=== PATIENT | male | born 1965 | race Caucasian/White ===

== ENCOUNTER 2020-06-04 21:21 | Emergency (ER) | payer MEDICARE, OTHER ==
[~2020-06-04 21:21] MED LIST: ACETAMINOPHEN500 MG PO; CYCL10 PO; IBUP600 PO; MELO7.5 PO; Naproxen250 MG PO; OLANZAPINE10 M2 PO
== END 2020-06-04 23:41 | disposition left against medical advice (07) ==
LOC: ER 21:21
DX: Z53.21 Procedure and treatment not carried out due to patient leaving prior to being seen by health care provider (principal)

== ENCOUNTER 2023-01-21 12:01 | Emergency (ER) | payer MEDICARE, OTHER ==
[~2023-01-21] VITALS: Ht 185.4 cm; Wt 68.0 kg
[2023-01-21] MEDS ORDERED: LIDO700A20 TOP (12:53)
[2023-01-21] MEDS ORDERED: BUPR100 PO (12:53)
[2023-01-21] MEDS ORDERED: MELO7.5 PO (12:53)
[2023-01-21] MEDS ORDERED: CLON.5 PO (12:53)
[2023-01-21] MEDS ORDERED: FLUO10 PO (12:53)
[2023-01-21] MEDS ORDERED: GABA300 PO (12:53)
[2023-01-21] MEDS ORDERED: Robaxin750 MG PO (12:53)
[2023-01-22] MEDS ORDERED: OXYC5 PO (22:46)
[2023-01-22] MEDS ORDERED: METH40 PO (22:48)
== END 2023-01-21 13:26 | disposition home or self-care (01) ==
LOC: ER 12:01
DX: Z76.0 Encounter for issue of repeat prescription (principal); G89.29 Other chronic pain; M54.9 Dorsalgia, unspecified; J44.9 Chronic obstructive pulmonary disease, unspecified; F17.200 Nicotine dependence, unspecified, uncomplicated; Z79.899 Other long term (current) drug therapy
CPT/HCPCS: 99281

== ENCOUNTER 2023-01-22 22:13 | Emergency (ER) | payer MEDICARE, OTHER ==
[~2023-01-22] VITALS: Ht 185.4 cm; Wt 65.8 kg
[~2023-01-22 22:13] MED LIST changes: +BUPR100 PO; +CLON.5 PO; +FLUO10 PO; +GABA300 PO; +LIDO700A20 TOP; +Robaxin750 MG PO
[2023-01-22] MEDS ORDERED: OXYC5 PO (22:46)
[2023-01-22] MEDS ORDERED: METH40 PO (22:48)
[2023-01-23] MEDS ORDERED: Robaxin750 MG PO (00:06)
== END 2023-01-23 01:58 | disposition home or self-care (01) ==
LOC: ER 22:13
DX: M54.2 Cervicalgia (principal); J44.9 Chronic obstructive pulmonary disease, unspecified; F17.210 Nicotine dependence, cigarettes, uncomplicated; Z79.899 Other long term (current) drug therapy
CPT/HCPCS: 96374; 99283; A9270; J1885; J7030

== ENCOUNTER 2023-01-30 11:25 | Emergency (ER) | payer MEDICARE, OTHER ==
[~2023-01-30] VITALS: Ht 185.4 cm; Wt 63.5 kg
[~2023-01-30 11:25] MED LIST changes: +METH40 PO; +OXYC5 PO
[2023-01-30 11:27] VITALS: BP 151/100
[2023-01-31] MEDS ORDERED: NAPR500 PO (22:00)
== END 2023-01-30 12:39 | disposition home or self-care (01) ==
LOC: ER 11:25
DX: M25.511 Pain in right shoulder (principal); J44.9 Chronic obstructive pulmonary disease, unspecified; F17.210 Nicotine dependence, cigarettes, uncomplicated; W19.XXXA Unspecified fall, initial encounter; Z79.899 Other long term (current) drug therapy
CPT/HCPCS: 73030; 99283-25

== ENCOUNTER 2023-01-31 18:57 | Emergency (ER) | payer MEDICARE, OTHER ==
[~2023-01-31] VITALS: Ht 185.4 cm; Wt 63.5 kg
[2023-01-31 21:30] VITALS: BP 111/60
[2023-01-31] MEDS ORDERED: NAPR500 PO (22:00)
== END 2023-01-31 22:15 | disposition home or self-care (01) ==
LOC: ER 18:57
DX: S09.90XA Unspecified injury of head, initial encounter (principal); S16.1XXA Strain of muscle, fascia and tendon at neck level, initial encounter; S80.02XA Contusion of left knee, initial encounter; S80.212A Abrasion, left knee, initial encounter; S80.211A Abrasion, right knee, initial encounter; J44.9 Chronic obstructive pulmonary disease, unspecified; F17.210 Nicotine dependence, cigarettes, uncomplicated; Y04.2XXA Assault by strike against or bumped into by another person, initial encounter; Z79.899 Other long term (current) drug therapy
CPT/HCPCS: 70450; 72125; 73562-LT; 99284-25; A9270

== ENCOUNTER 2023-09-02 09:15 | Emergency (ER) | payer OTHER ==
[~2023-09-02] VITALS: Ht 175.3 cm; Wt 48.1 kg
[~2023-09-02 09:15] MED LIST changes: +NAPR500 PO
[2023-09-02 10:35] LABS: U Amphetamine Screen Not Detected; U Barbituate Screen Not Detected; U Benzodiazapine Screen Not Detected; U Buprenorphine Screen Not Detected; U Cannabinoids Screen DETECTED; U Cocaine Screen Not Detected; U Methadone Screen DETECTED; U Methamphetamine Screen Not Detected; U Opiates Screen Not Detected; U Oxycodone Screen Not Detected; U Phencyclidine Screen Not Detected; U Propoxyphene Screen Not Detected
[2023-09-02] MEDS ORDERED: GABAPENTIN600 MG PO (11:15)
[2023-09-02 14:14] VITALS: BP 121/82
[2023-09-02] MEDS ORDERED: BUPROPION XL150 M1 PO (19:35)
[2023-09-02] MEDS ORDERED: HYDHCL25 PO (19:36)
[2023-09-02] MEDS ORDERED: PERP8 PO (19:37)
[2023-09-02] MEDS ORDERED: FLUO10 PO (19:38)
[2023-09-02] MEDS ORDERED: CEPH500 PO (20:13)
== END 2023-09-02 14:14 | disposition home or self-care (01) ==
LOC: ER 09:15
PROVIDERS: Physician Assistant
DX: R41.82 Altered mental status, unspecified (principal); F17.200 Nicotine dependence, unspecified, uncomplicated; Z79.899 Other long term (current) drug therapy
CPT/HCPCS: 99285

== ENCOUNTER 2023-09-02 18:58 | Emergency (ER) | payer OTHER ==
[~2023-09-02] VITALS: Ht 185.4 cm; Wt 63.5 kg
[~2023-09-02 18:58] MED LIST changes: +GABAPENTIN600 MG PO
[2023-09-02 19:22] LABS: Source, Urine Clean Catch
[2023-09-02 19:24] LABS: Appearance, Urine Cloudy (Clear); Bilirubin, Urine Neg (Neg); Blood, Urine 1+ (Neg); Color, Urine Yellow (P-Yellow); Glucose Qualitative, Urine Neg (Neg); Ketones, Urine Neg (Neg); Leukocyte Esterase, Urine 3+ (Neg); Nitrite, Urine Pos (Neg); Protein, Urine 2+ (Neg); Urobilinogen, Urine NORM (Normal)
[2023-09-02 19:35] LABS: Bacteria Many /hpf; Squamous Epithelial Cells Rare /hpf (Few); White Blood Cells, Urine 50-100 /hpf (0-5)
[2023-09-02] MEDS ORDERED: BUPROPION XL150 M1 PO (19:35)
[2023-09-02] MEDS ORDERED: HYDHCL25 PO (19:36)
[2023-09-02] MEDS ORDERED: PERP8 PO (19:37)
[2023-09-02] MEDS ORDERED: FLUO10 PO (19:38)
[2023-09-02 19:41] LABS: BASOPHILS ABSOLUTE AUTO 0.09 K/mm3 (0.00-0.23); BASOPHILS PERCENT AUTO 1 % (0-2); EOSINOPHILS ABSOLUTE AUTO 0.26 K/mm3 (0.00-0.68); EOSINOPHILS PERCENT AUTO 3 % (0-6); Hematocrit 28.6 % (37.0-53.0); Hemoglobin 9.6 g/dL (13.5-17.5); IMMATURE GRAN ABSOLUTE AUTO 0.05 K/mm3 (0.00-0.10); IMMATURE GRAN PERCENT AUTO 1 % (0-1); LYMPHOCYTES ABSOLUTE AUTO 2.34 K/mm3 (0.84-5.20); LYMPHOCYTES PERCENT AUTO 27 % (21-46); MONOCYTES PERCENT AUTO 10 % (4-13); Mean Corpuscular HGB 29.5 pg (26.0-34.0); Mean Corpuscular HGB Conc 33.6 g/dL (31.5-36.5); Mean Corpuscular Volume 88 fL (80-100); NEUTROPHILS ABSOLUTE AUTO 5.06 K/mm3 (1.96-9.15); NEUTROPHILS PERCENT AUTO 58 % (41-73); NRBC ABSOLUTE 0.02 K/mm3 (0.00-0.02); NRBC Auto 0.2 /100 WBC (0.0-0.2); RDW Coefficient Variation 14.9 % (11.7-14.2); RDW Standard Deviation 47.8 fL (35.1-46.3); Red Blood Cell Count 3.25 M/mm3 (4.30-5.90)
[2023-09-02 19:57] LABS: Albumin, Blood 3.4 g/dL (3.4-5.0); Albumin/Globulin Ratio 1.3 (0.8-1.8); Bilirubin, Total 0.4 mg/dL (0.1-1.0); Bun/Creatinine Ratio 24.7 (12.0-20.0); Calcium, Blood 8.5 mg/dL (8.5-10.1); Creatinine, Blood 0.77 mg/dL (0.60-1.20); Globulin, Blood 2.7 g/dL (2.2-4.0); Mean Platelet Volume 10.8 fL (9.1-12.4); Platelet Count 241 K/mm3 (150-400); Potassium, Blood 4.7 mmol/L (3.5-5.5); Total Protein, Blood 6.1 g/dL (6.4-8.2)
[2023-09-02] MEDS ORDERED: CEPH500 PO (20:13)
[2023-09-02 20:39] VITALS: BP 102/66
== END 2023-09-02 20:39 | disposition home or self-care (01) ==
LOC: ER 18:58
PROVIDERS: Student in an Organized Health Care Education/Training Program
DX: N39.0 Urinary tract infection, site not specified (principal); M54.2 Cervicalgia; G89.29 Other chronic pain; F17.200 Nicotine dependence, unspecified, uncomplicated; Z79.899 Other long term (current) drug therapy
CPT/HCPCS: 80053; 81001; 85025; 87077; 87086; 87186; 93005; 93010; 99285-25; A9270; J1885

== ENCOUNTER 2023-09-03 06:33 | Emergency (ER) | payer OTHER ==
[~2023-09-03] VITALS: Ht 185.4 cm; Wt 63.5 kg
[~2023-09-03 06:33] MED LIST changes: +BUPROPION XL150 M1 PO; +CEPH500 PO; +HYDHCL25 PO; +PERP8 PO
[2023-09-03 07:25] LABS: Calcium, Ionized (POC) 1.17 mmol/L (1.10-1.46); Chloride (POC) 103 mmol/L (98-108); Creatinine (POC) 0.9 mg/dL (0.8-1.3); Glucose (ISTAT POC) 77 mg/dL (70-99); Hemoglobin (POC) 10.9 g/dL (13.5-17.5); Potassium (POC) 3.8 mmol/L (3.5-5.5); Sodium (POC) 142 mmol/L (135-148); Total CO2 (POC) 30 mmol/L (21-32)
[2023-09-03 07:45] VITALS: BP 107/60
== END 2023-09-03 07:55 | disposition home or self-care (01) ==
LOC: ER 06:33
PROVIDERS: Student in an Organized Health Care Education/Training Program
DX: G47.00 Insomnia, unspecified (principal); D64.9 Anemia, unspecified; Z79.899 Other long term (current) drug therapy; J44.9 Chronic obstructive pulmonary disease, unspecified; F17.210 Nicotine dependence, cigarettes, uncomplicated; R40.0 Somnolence
CPT/HCPCS: 80047; 80048; 81001; 82803; 85014; 85025; 87086; 96374; 96376; 99283; 99284-25; A9270; J2310

== ENCOUNTER 2023-09-03 12:04 | Emergency (ER) | payer OTHER ==
[~2023-09-03] VITALS: Ht 182.9 cm; Wt 63.5 kg
[2023-09-03 12:39] LABS: Base Excess Venous 4.4 mmol/L; Bicarbonate Venous 27.3 mmol/L (24.0-30.0); PCO2 Venous 56.6 mmHg (38-42); pH Blood Venous 7.34 (7.34-7.37)
[2023-09-03 12:42] LABS: BASOPHILS ABSOLUTE AUTO 0.09 K/mm3 (0.00-0.23); BASOPHILS PERCENT AUTO 1 % (0-2); EOSINOPHILS ABSOLUTE AUTO 0.35 K/mm3 (0.00-0.68); EOSINOPHILS PERCENT AUTO 5 % (0-6); Hematocrit 31.7 % (37.0-53.0); Hemoglobin 10.4 g/dL (13.5-17.5); IMMATURE GRAN ABSOLUTE AUTO 0.02 K/mm3 (0.00-0.10); IMMATURE GRAN PERCENT AUTO 0 % (0-1); LYMPHOCYTES ABSOLUTE AUTO 2.64 K/mm3 (0.84-5.20); LYMPHOCYTES PERCENT AUTO 35 % (21-46); MONOCYTES ABSOLUTE AUTO 0.78 K/mm3 (0.16-1.47); MONOCYTES PERCENT AUTO 10 % (4-13); Mean Corpuscular HGB 29.5 pg (26.0-34.0); Mean Corpuscular HGB Conc 32.8 g/dL (31.5-36.5); Mean Corpuscular Volume 90 fL (80-100); Mean Platelet Volume 10.6 fL (9.1-12.4); NEUTROPHILS ABSOLUTE AUTO 3.66 K/mm3 (1.96-9.15); NEUTROPHILS PERCENT AUTO 49 % (41-73); Platelet Count 263 K/mm3 (150-400); RDW Standard Deviation 49.9 fL (35.1-46.3); Red Blood Cell Count 3.53 M/mm3 (4.30-5.90); White Blood Cell Count 7.54 K/mm3 (4.00-11.30)
[2023-09-03 13:48] LABS: Bun/Creatinine Ratio 24.1 (12.0-20.0); Calcium, Blood 9.1 mg/dL (8.5-10.1); Creatinine, Blood 0.87 mg/dL (0.60-1.20); Potassium, Blood 3.8 mmol/L (3.5-5.5)
[2023-09-03 14:13] LABS: Source, Urine Clean Catch
[2023-09-03 14:18] LABS: Appearance, Urine Clear (Clear); Bilirubin, Urine Neg (Neg); Blood, Urine Neg (Neg); Color, Urine Yellow (P-Yellow); Glucose Qualitative, Urine Neg (Neg); Ketones, Urine Neg (Neg); Leukocyte Esterase, Urine 1+ (Neg); Nitrite, Urine Neg (Neg); Protein, Urine Neg (Neg); Specific Gravity, Urine 1.015 (1.003-1.022); Urobilinogen, Urine NORM (Normal); pH, Urine 6.5 (5.0-8.0)
[2023-09-03 14:33] LABS: Bacteria Mod /hpf; Red Blood Cells, Urine 0-2 /hpf (0-2); Squamous Epithelial Cells Rare /hpf (Few)
[2023-09-03 14:38] LABS: U Amphetamine Screen Not Detected; U Barbituate Screen Not Detected; U Benzodiazapine Screen DETECTED; U Cannabinoids Screen DETECTED; U Cocaine Screen Not Detected; U Methadone Screen DETECTED; U Methamphetamine Screen Not Detected
[2023-09-03 14:39] LABS: U Buprenorphine Screen Not Detected; U Opiates Screen Not Detected; U Oxycodone Screen Not Detected; U Phencyclidine Screen Not Detected
[2023-09-03 15:54] VITALS: BP 143/83
== END 2023-09-03 15:45 | disposition home or self-care (01) ==
LOC: ER 12:04
PROVIDERS: Student in an Organized Health Care Education/Training Program
DX: R40.0 Somnolence (principal); Z79.899 Other long term (current) drug therapy; J44.9 Chronic obstructive pulmonary disease, unspecified; F17.210 Nicotine dependence, cigarettes, uncomplicated
CPT/HCPCS: 80048; 81001; 82803; 85025; 87086; 96374; 96376; 99284-25; J2310

== ENCOUNTER 2023-10-08 11:41 | Emergency (ER) | payer OTHER ==
[~2023-10-08] VITALS: Ht 180.3 cm; Wt 65.8 kg
[2023-10-08 19:15] VITALS: BP 142/84
== END 2023-10-08 21:03 | disposition home or self-care (01) ==
LOC: ER 11:41
DX: F11.10 Opioid abuse, uncomplicated (principal); J44.9 Chronic obstructive pulmonary disease, unspecified; Z79.891 Long term (current) use of opiate analgesic; Z79.899 Other long term (current) drug therapy; F17.210 Nicotine dependence, cigarettes, uncomplicated
CPT/HCPCS: 93005; 93010; 99285-25

== ENCOUNTER 2023-12-11 20:03 | Emergency (ER) | payer OTHER ==
[~2023-12-11] VITALS: Ht 185.4 cm; Wt 65.8 kg
[2023-12-11 20:38] LABS: Albumin, Blood 3.9 g/dL (3.4-5.0); Albumin/Globulin Ratio 1.4 (0.8-1.8); Bilirubin, Total 0.3 mg/dL (0.1-1.0); Bun/Creatinine Ratio 18.7 (12.0-20.0); Calcium, Blood 9.5 mg/dL (8.5-10.1); Creatinine, Blood 0.91 mg/dL (0.60-1.20); Globulin, Blood 2.8 g/dL (2.2-4.0); Potassium, Blood 3.9 mmol/L (3.5-5.5); Total Protein, Blood 6.7 g/dL (6.4-8.2)
[2023-12-11 20:54] LABS: BASOPHILS ABSOLUTE AUTO 0.08 K/mm3 (0.00-0.23); BASOPHILS PERCENT AUTO 1 % (0-2); EOSINOPHILS ABSOLUTE AUTO 0.34 K/mm3 (0.00-0.68); EOSINOPHILS PERCENT AUTO 3 % (0-6); Hematocrit 33.8 % (37.0-53.0); Hemoglobin 11.4 g/dL (13.5-17.5); IMMATURE GRAN ABSOLUTE AUTO 0.04 K/mm3 (0.00-0.10); IMMATURE GRAN PERCENT AUTO 0 % (0-1); LYMPHOCYTES ABSOLUTE AUTO 2.05 K/mm3 (0.84-5.20); LYMPHOCYTES PERCENT AUTO 21 % (21-46); MONOCYTES ABSOLUTE AUTO 1.11 K/mm3 (0.16-1.47); MONOCYTES PERCENT AUTO 11 % (4-13); Mean Corpuscular HGB 28.9 pg (26.0-34.0); Mean Corpuscular HGB Conc 33.7 g/dL (31.5-36.5); Mean Corpuscular Volume 86 fL (80-100); Mean Platelet Volume 10.3 fL (9.1-12.4); NEUTROPHILS ABSOLUTE AUTO 6.35 K/mm3 (1.96-9.15); NEUTROPHILS PERCENT AUTO 64 % (41-73); Platelet Count 217 K/mm3 (150-400); RDW Coefficient Variation 12.9 % (11.7-14.2); RDW Standard Deviation 40.6 fL (35.1-46.3); Red Blood Cell Count 3.95 M/mm3 (4.30-5.90); White Blood Cell Count 9.97 K/mm3 (4.00-11.30)
[2023-12-11 22:00] VITALS: BP 105/61
== END 2023-12-11 22:56 | disposition home or self-care (01) ==
LOC: ER 20:03
PROVIDERS: Emergency Medicine
DX: S06.9X9A Unspecified intracranial injury with loss of consciousness of unspecified duration, initial encounter (principal); S00.01XA Abrasion of scalp, initial encounter; F11.10 Opioid abuse, uncomplicated; W18.30XA Fall on same level, unspecified, initial encounter; Z79.899 Other long term (current) drug therapy; J44.9 Chronic obstructive pulmonary disease, unspecified; F17.210 Nicotine dependence, cigarettes, uncomplicated
CPT/HCPCS: 70450; 80053; 85025; 99284-25

== ENCOUNTER 2025-06-01 17:32 | Observation (INO) | payer OTHER ==
[~2025-06-01] VITALS: Ht 177.8 cm; Wt 71.4 kg
[2025-06-01 18:11] LABS: BASOPHILS ABSOLUTE AUTO 0.03 K/mm3 (0.00-0.23); BASOPHILS PERCENT AUTO 0 % (0-2); EOSINOPHILS ABSOLUTE AUTO 0.00 K/mm3 (0.00-0.68); EOSINOPHILS PERCENT AUTO 0 % (0-6); Hematocrit 34.1 % (37.0-53.0); Hemoglobin 11.8 g/dL (13.5-17.5); IMMATURE GRAN ABSOLUTE AUTO 0.02 K/mm3 (0.00-0.10); IMMATURE GRAN PERCENT AUTO 0 % (0-1); LYMPHOCYTES ABSOLUTE AUTO 1.67 K/mm3 (0.84-5.20); LYMPHOCYTES PERCENT AUTO 19 % (21-46); MONOCYTES ABSOLUTE AUTO 0.63 K/mm3 (0.16-1.47); MONOCYTES PERCENT AUTO 7 % (4-13); Mean Corpuscular HGB Conc 34.6 g/dL (31.5-36.5); Mean Corpuscular Volume 78 fL (80-100); NEUTROPHILS ABSOLUTE AUTO 6.55 K/mm3 (1.96-9.15); NEUTROPHILS PERCENT AUTO 74 % (41-73); NRBC ABSOLUTE 0.00 K/mm3 (0.00-0.02); NRBC Auto 0.0 /100 WBC (0.0-0.2); Platelet Count 249 K/mm3 (150-400); RDW Coefficient Variation 14.6 % (11.7-14.2); RDW Standard Deviation 40.7 fL (35.1-46.3)
[2025-06-01] MEDS ORDERED: NS 1,000 ML IV SCH (18:25)
[2025-06-01 18:28] LABS: Acetaminophen, Random <2.0 ug/mL (10.0-30.0); Salicylate 5.6 mg/dL (2.8-20.0)
[2025-06-01 18:30] LABS: Prothrombin Time Results 12.9 Sec (9.7-11.5)
[2025-06-01 18:47] LABS: Alanine Aminotransfer (ALT/SGP 16 U/L (12-78); Albumin, Blood 3.5 g/dL (3.4-5.0); Albumin/Globulin Ratio 1.0 (0.8-1.8); Anion Gap 11 mmol/L (3-11); Aspartate Aminotrans (AST/SGOT 17 U/L (12-37); Bilirubin, Total 0.5 mg/dL (0.1-1.0); Blood Urea Nitrogen 15 mg/dL (8-24); CO2, Blood 20 mmol/L (21-32); Calcium, Blood 9.5 mg/dL (8.5-10.1); Chloride, Blood 108 mmol/L (98-108); Creatinine, Blood 0.72 mg/dL (0.60-1.20); Ethanol (Alcohol), Blood, Med <3 mg/dL; Globulin, Blood 3.4 g/dL (2.2-4.0); Glucose, Blood 131 mg/dL (70-99); Potassium, Blood 3.6 mmol/L (3.5-5.5); Sodium, Blood 135 mmol/L (136-145); Total Protein, Blood 6.9 g/dL (6.4-8.2)
[2025-06-01 18:58] LABS: pH Blood Venous 7.50 (7.34-7.37)
[2025-06-01 20:37] LABS: pH Blood Venous 7.44 (7.34-7.37)
[2025-06-02 07:19] LABS: Anion Gap 8.0 mmol/L (3-11); Blood Urea Nitrogen 13.0 mg/dL (8-24); CO2, Blood 21.0 mmol/L (21-32); Calcium, Blood 7.8 mg/dL (8.5-10.1); Chloride, Blood 113.0 mmol/L (98-108); Creatinine, Blood 0.68 mg/dL (0.60-1.20); Glucose, Blood 101.0 mg/dL (70-99); Potassium, Blood 3.5 mmol/L (3.5-5.5); Sodium, Blood 138.0 mmol/L (136-145)
[2025-06-02] MEDS ORDERED: Enoxaparin 40 MG/0.4 ML SYR SC SCH (09:00)
[2025-06-02 12:26] LABS: IMMATURE RETIC FRACTION 7.1 % (2.3-16.0); RETIC HGB EQUIVALENT 31.5 pg (28.20-36.60); RETICULOCYTE ABSOLUTE 0.0749 M/mm3 (0.0200-0.1100); RETICULOCYTE COUNT PERCENT 1.71 % (0.50-2.50)
[2025-06-02 13:25] LABS: Ferritin, Serum 93.0 ng/mL (26-388); Magnesium, Blood 1.8 mg/dL (1.6-2.4); Thyroid Stimulating Hormone 0.4 uIU/mL (0.360-4.800); Total Iron Binding Capacity 184.0 ug/dL (250-450)
[2025-06-02 13:26] LABS: Phosphorus, Blood 2.8 mg/dL (2.5-4.9)
[2025-06-02 14:44] VITALS: BP 161/84
--- NOTE | 2025-06-02 15:21 | NUR ---
ADMISSION NOTE: PATIENT ARRIVES TO ROOM VIA GURNEY AT 1430 FROM ER FOR DX'S OF TOXIC METABOLIC ENCEPHALOPATHY. PATIENT TRANSFERRED TO BED c 3 MAX ASSIST USING A SLIDER SHEET. PATIENT ALERT AND ORIENTED TO HIS NAME ONLY, CONFUSED AND NOT ABLE TO FOLLOW DIRECTIONS. PATIENT ADMISSION, SKIN ASSESSMENT c 2 RN'S VERIFIED COMPLETED. PATIENT MEDRIC IS NOT COMPLETED D/T AMS AND NOT ABLE TO CONTRIBUTE ANY MEDICATION LIST WELL MEDICAL HX. THIS RN ATTEMPTED TO CALL PATIENT SPOUSE AT [phone] [phone], BUT GOES TO [facility]ICE MAIL AND NOT ABLE TO LEFT A MESSAGE D/T MAIL BOX IS FULL. PATIENT REPORTS BEING "COLD". PATIENT PROVIDED c WARM BLANKET. BED ALARM ON FOR SAFETY. CALL LIGHT IN REACH.
[2025-06-02] MEDS ORDERED: GABA300 PO (16:29)
[2025-06-02] MEDS ORDERED: PRAZ2 PO (16:36)
[2025-06-02] MEDS ORDERED: METPHE20CR PO (16:36)
--- NOTE | 2025-06-02 17:35 | NUR ---
SHIFT SUMMARY: PATIENT HAS HAD NO CHANGES SINCE ADMITTED TO UNIT. PATIENT A/O TO SELF ONLY, PLEASANTLY CONFUSED, REPLIED c SMILE WHEN ASKED TO QUESTION. PATIENT CONTINENT OF BLADDER, AMBULATED TO BATHROOM/BACK IN BED c 1 ASSIST. PATIENT TOLERATED ORAL INTAKE WELL WITHOUT ANY DIFFICULTIES SWALLOWING. VITAL SIGNS REVIEWED. BED ALARM ON FOR SAFETY. CALL LIGHT IN REACH.
--- NOTE | 2025-06-02 18:10 | NUR ---
UPDATE NOTE: RECEIVED A CALL FROM SPOUSE (BRANDIN) AT [phone] ASKING FOR PATIENT UPDATE. UPDATE GIVEN TO SPOUSE (BRANDIN). PER BRANDIN PATIENT "NORMALLY ALERT AND ORIENTED, HE MANAGE ALL HIS MEDICATION AT HOME, HES CONFUSION STARTED ABOUT TWO DAYS AGO AFTER EPISODE OF THREWING UP." THIS RN ASKED BRANDIN PATIENT HOME METHADONE DOSE. PER BRANDIN "HE TAKES 170 MG DAILY AND I CANNOT REMEMBER THE LAST TIME HE TOOK IT BECAUSE HE MANAGE ALL HIS MEDICATION."
[2025-06-02 19:44] VITALS: BP 148/88
--- NOTE | 2025-06-03 04:25 | NUR ---
NIGHT SUMMARY: PT AOX1. MUMBLED SPEECH. UNABLE TO FOLLOW DIRECTIONS. UNSURE IF MED REC WAS COMPLETED. PT UNABLE TO PROVIDE ANY HISTORY. TALKED WITH CHARGE AND WILL PASS ALONG TO DAY SHIFT. PT ABLE TO TURN SELF IN BED. SET BED ALARM OFF ONCE OVERNIGHT WHILE GETTING UP TO BATHROOM TO VOID. PT SBA. NO EPISODES OF INCONTINENCE. ON RA. CALL LIGHT WITHIN REACH AND BED IN LOW POSITION. PT KEEPS TAKING OFF GRIPPER SOCKS.
[2025-06-03 04:42] VITALS: BP 136/74
[2025-06-03 04:57] LABS: BASOPHILS ABSOLUTE AUTO 0.05 K/mm3 (0.00-0.23); BASOPHILS PERCENT AUTO 1 % (0-2); EOSINOPHILS ABSOLUTE AUTO 0.05 K/mm3 (0.00-0.68); EOSINOPHILS PERCENT AUTO 1 % (0-6); Hematocrit 34.2 % (37.0-53.0); Hemoglobin 11.6 g/dL (13.5-17.5); IMMATURE GRAN ABSOLUTE AUTO 0.03 K/mm3 (0.00-0.10); IMMATURE GRAN PERCENT AUTO 0 % (0-1); LYMPHOCYTES ABSOLUTE AUTO 2.49 K/mm3 (0.84-5.20); LYMPHOCYTES PERCENT AUTO 27 % (21-46); MONOCYTES ABSOLUTE AUTO 1.01 K/mm3 (0.16-1.47); MONOCYTES PERCENT AUTO 11 % (4-13); Mean Corpuscular HGB Conc 33.9 g/dL (31.5-36.5); Mean Corpuscular Volume 79 fL (80-100); NEUTROPHILS ABSOLUTE AUTO 5.78 K/mm3 (1.96-9.15); NEUTROPHILS PERCENT AUTO 62 % (41-73); NRBC ABSOLUTE 0.00 K/mm3 (0.00-0.02); NRBC Auto 0.0 /100 WBC (0.0-0.2); Platelet Count 226 K/mm3 (150-400); RDW Coefficient Variation 14.3 % (11.7-14.2); RDW Standard Deviation 41.2 fL (35.1-46.3)
[2025-06-03 05:13] LABS: Anion Gap 8.0 mmol/L (3-11); Blood Urea Nitrogen 12.0 mg/dL (8-24); CO2, Blood 23.0 mmol/L (21-32); Calcium, Blood 8.7 mg/dL (8.5-10.1); Chloride, Blood 108.0 mmol/L (98-108); Creatinine, Blood 0.7 mg/dL (0.60-1.20); Glucose, Blood 101.0 mg/dL (70-99); Potassium, Blood 3.3 mmol/L (3.5-5.5); Sodium, Blood 136.0 mmol/L (136-145)
[2025-06-03 07:14] VITALS: BP 146/93
--- NOTE | 2025-06-03 07:35 | NUR ---
MEDREC NOTE: VISUAL BASIC PROGRAMMER JULIO CÉSAR WAS ABLE TO OBTAIN THE LIST OF PATIENT MEDS FROM [facility] VIA FAXED 06/02 AND THIS RN SPOKE TO SPOUSE (BRANDIN) YESTERDAY 06/02/25 REGARDING METHADONE DOSE. PATIENT HOME MEDS HAS BEEN RECONCILLED.
[2025-06-03] MEDS ORDERED: Potassium Chl 20MEQ/Water100ML 100 ML IV STA (07:58)
[2025-06-03] MEDS ORDERED: Sod Ferric Gluc Complx/Sucrose 125 MG in NS 100 ML IV SCH (09:00)
--- NOTE | 2025-06-03 09:30 | NUR ---
NOTIFICATION NOTE: PATIENT PULLED HIS IV ACCESS, MULTIPLE ATTEMPTS MADE FOR PIV PLACEMENT, BUT UNSUCCESSFUL. PATIENT HAS SCHEDULED IV MEDS THIS AM. NOTIFIED DR. PATRICIA martinez THIS ISSUE. PER DR. GOMEZ HE WILL CHANGE TO ORAL AND WILL ROUND PATIENT SOON.
[2025-06-03 13:07] LABS: Source, Urine Clean Catch
[2025-06-03 13:23] LABS: Bilirubin, Urine Neg (Neg); Glucose Qualitative, Urine Neg (Neg); Ketones, Urine Neg (Neg); Leukocyte Esterase, Urine Neg (Neg); Protein, Urine Neg (Neg); Specific Gravity, Urine 1.005 (1.003-1.022); Urobilinogen, Urine NORM (Normal)
[2025-06-03 13:36] LABS: Color, Urine Pale Yellow (P-Yellow)
[2025-06-03 13:39] LABS: U Amphetamine Screen Not Detected
[2025-06-03 13:40] LABS: U Barbituate Screen Not Detected; U Benzodiazapine Screen Not Detected; U Buprenorphine Screen Not Detected; U Cannabinoids Screen DETECTED; U Cocaine Screen Not Detected; U Methadone Screen DETECTED; U Methamphetamine Screen Not Detected; U Opiates Screen Not Detected; U Oxycodone Screen Not Detected; U Phencyclidine Screen Not Detected
--- NOTE | 2025-06-03 17:21 | NUR ---
SHIFT/DISCHARGE SUMMARY: PATIENT A/O TO SELF AND PLACED, CONFUSED, BUT ABLE TO FOLLOW DIRECTIONS. PATIENT DENIES CP/PRESSURE, SOB, N/V, DIZZINESS AND GENERALIZED PAIN. PATIENT RECEIVED LIQUID PO POTASSIUM PRIOR TO DISCHARGE. PATIENT HAS FAIR APPETITE, CONTINENT OF BLADDER AND AMBULATES TO BATHROOM c SBA. PATIENT DISCHARGE HOME. DISCHARGE INSTRUCTIONS PACKET GIVEN TO PATIENT. PATIENT EDUCATED ON ADMITITNG DX'S OF TOXIC METABOLIC ENCEPHALOPATHY, S/S, TX AND TO F/U c PCP. PATIENT VERBALIZED UNDERSTANDING AND NO FURTHER QUESTIONS. PATIENT HAS HAD NO NEW RX ORDER. PATIENT LEFT THE ROOM AT 1623, TRANSPORTED VIA WC BY MOVIE PROJECTIONIST TO PATIENT ENTRANCE.
== END 2025-06-03 16:23 | disposition home or self-care (01) ==
LOC: ER 17:32 → ERHOLD 17:33 → MEDS 17:33 → ERHOLD 17:33 → ER 20:14 → MEDS 20:14
PROVIDERS: Family Medicine; Nurse Practitioner Acute Care; Student in an Organized Health Care Education/Training Program; ADMIT Student in an Organized Health Care Education/Training Program
DX: G92.8 Other toxic encephalopathy (principal); E87.3 Alkalosis; J44.9 Chronic obstructive pulmonary disease, unspecified; G89.29 Other chronic pain; M54.9 Dorsalgia, unspecified; Q79.61 Classical Ehlers-Danlos syndrome; R10.31 Right lower quadrant pain; D50.9 Iron deficiency anemia, unspecified; F17.210 Nicotine dependence, cigarettes, uncomplicated; Z79.1 Long term (current) use of non-steroidal anti-inflammatories (NSAID); Z79.899 Other long term (current) drug therapy
CPT/HCPCS: 36415; 70450; 71046; 74177; 80048; 80053; 80320; 81003; 82140; 82533; 82607; 82728; 82746; 82803; 83540; 83550; 83605; 83690; 83735; 84100; 84439; 84443; 84481; 84484; 85025; 85045; 85610; 85730; 93005; 93010; 96360-59; 99285-25; A9270; G0378; G0480; J1650; J7030; Q9967